=== PATIENT | male | born 1970 | race Caucasian/White ===

== ENCOUNTER 2023-05-28 09:43 | Outpatient (REF) | payer SELFPAY ==
[2023-05-28 16:07] LABS: HGB 13.3 g/dL (13.5-17.5); MCH 31.4 pg (27.0-33.0); MCHC 34.1 % (32.0-36.0); MCV 92 fL (80-95); MPV 9.7 fL (8.0-11.0); Platelet Count 410 10^3/uL (130-400); RBC 4.23 10^6/uL (4.36-5.78); RDW-SD 43.6 fL; WBC 9.18 10^3/uL (4.4-10.8)
[2023-05-28 16:22] LABS: Calculated LDL 188 mg/dL (<100); Cholesterol 298 mg/dL (<200); HDL Cholesterol 51 mg/dL (40-60); TSH 1.64 uIU/mL (0.36-3.74); Triglyceride 298 mg/dL (<150)
[2023-05-28 22:36] LABS: PSA, Screening 0.9 ng/mL (<=3.5)
== END 2023-05-28 09:44 | disposition home or self-care (01) ==
LOC: NCHCN 09:43
PROVIDERS: Visit Provider Family Medicine
DX: E66.3 Overweight (principal); Z13.29 Encounter for screening for other suspected endocrine disorder; Z12.5 Encounter for screening for malignant neoplasm of prostate; Z13.220 Encounter for screening for lipoid disorders
CPT/HCPCS: 80061; 84153; 85027; 84443

== ENCOUNTER 2024-04-07 19:28 | Outpatient (REF) | payer SELFPAY ==
[2024-04-07 14:26] LABS: Calculated LDL 114 mg/dL (<100); Cholesterol 242 mg/dL (<200); HDL Cholesterol 49 mg/dL (40-60); Triglyceride 397 mg/dL (<150)
== END 2024-04-07 19:29 | disposition home or self-care (01) ==
LOC: NCHCN 19:28
PROVIDERS: Visit Provider Family Medicine
DX: Z13.220 Encounter for screening for lipoid disorders (principal)
CPT/HCPCS: 80061

== ENCOUNTER 2025-03-31 09:27 | Outpatient (REF) | payer MEDICAID, SELFPAY ==
[2025-03-31 16:01] LABS: ALT 49 U/L (16-63); AST 32 U/L (15-37); Alkaline Phosphatase 80 U/L (46-116); Anion Gap 10.5 mmol/L (3-11); BUN 13 mg/dL (7-18); Bilirubin, Total 0.6 mg/dL (0.2-1.0); CO2 25.5 mmol/L (21.0-32.0); CREATININE 0.9 mg/dL (0.70-1.30); Calcium 9.6 mg/dL (8.5-10.1); Calculated LDL 110 mg/dL (<100); Chloride 103 mmol/L (98-107); Cholesterol 211 mg/dL (<200); Estimated GFR 102.76 (mL/min/1.73m2); Glucose 107 mg/dL (74-106); HDL Cholesterol 55 mg/dL (>or=40); Potassium 4.1 mmol/L (3.5-5.1); Sodium 139 mmol/L (136-145); Triglyceride 230 mg/dL (<150)
== END 2025-03-31 09:28 | disposition home or self-care (01) ==
LOC: NCHCN 09:27
PROVIDERS: Visit Provider Family Medicine
DX: E78.5 Hyperlipidemia, unspecified (principal)
CPT/HCPCS: 80053; 80061